=== PATIENT | male | born 1955 | race Caucasian/White ===

== ENCOUNTER 2018-03-16 12:31 | Emergency (ER) | payer OTHER ==
[~2018-03-16] VITALS: Ht 180.3 cm; Wt 79.4 kg
[~2018-03-16 12:31] MED LIST: FISH OIL 1,001000 M1; GNP THERAPEUTI1 EACH; LISINOPRIL40 MG; RESTORIL30 MG; SYNTHROID100 MCG; TAMSULOSIN HCL0.4 M1
[2018-03-16 12:47] VITALS: BP 149/79
[2018-03-16] MEDS ORDERED: ASPIR 8181 MG PO (12:52)
== END 2018-03-16 14:23 | disposition home or self-care (01) ==
LOC: ER 12:31
DX: S61.412A Laceration without foreign body of left hand, initial encounter (principal); I10 Essential (primary) hypertension; E03.9 Hypothyroidism, unspecified; Z88.2 Allergy status to sulfonamides; W26.8XXA Contact with other sharp object(s), not elsewhere classified, initial encounter; Y92.89 Other specified places as the place of occurrence of the external cause; Y93.89 Activity, other specified; Y99.8 Other external cause status

== ENCOUNTER → 2020-06-07 | Outpatient (CLI) | payer OTHER ==
[~2020-06-07] MED LIST changes: +ASPIR 8181 MG PO
== END ==
LOC: CAT 09:10
PROVIDERS: ATTEND Internal Medicine Cardiovascular Disease
DX: Z13.6 Encounter for screening for cardiovascular disorders (principal); I25.10 Atherosclerotic heart disease of native coronary artery without angina pectoris; E78.00 Pure hypercholesterolemia, unspecified

== ENCOUNTER 2020-11-30 21:05 | Emergency (ER) | payer OTHER ==
[~2020-11-30] VITALS: Ht 180.3 cm; Wt 77.1 kg
[2020-11-30] MEDS ORDERED: DESYREL150 MG PO (21:17)
[2020-11-30 21:35] LABS: ABSOLUTE NEUTROPHILS 3.6 thou/uL (1.4-8.2); BASOPHILS 1.5 % (0.0-2.0); HEMATOCRIT 45.7 % (42.0-52.0); HEMOGLOBIN 15.7 gm/dL (14.0-18.0); LYMPHOCYTES 32.7 % (24.0-44.0); MCH 30.9 pg (26.0-34.0); MCHC 34.3 g/dL (28.0-37.0); MCV 90.2 fL (80.0-100.0); MONOCYTES 9.8 % (1.0-8.0); PLATELET COUNT 317 thou/uL (150-400); RBC 5.07 mil/uL (4.50-6.00); RDW 13.7 % (10.5-14.5); WBC 6.9 thou/uL (4.0-11.0)
[2020-11-30 21:40] LABS: ANION GAP 8 mmol/L (7-16); BUN 21 mg/dL (7-18); CALCIUM 9.4 mg/dL (8.5-10.1); CHLORIDE 102 mmol/L (98-107); CO2 26 mmol/L (21-32); CREATININE 1.3 mg/dL (0.7-1.3); GLUCOSE 160 mg/dL (74-106); POTASSIUM 3.9 mmol/L (3.5-5.1); SODIUM 136 mmol/L (136-145)
[2020-11-30 21:50] LABS: TROPONIN-I <0.06 ng/mL (<0.06)
[2020-11-30 22:36] VITALS: BP 143/86
--- NOTE | 2020-12-02 07:22 | EKG ---
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 : 1955 Requested By: Polo Leon Order Number: [id number] MD: Slikc Pierce Measurements Intervals [place] Rate: 98 P: -81 RI: 130 QRS: -28 QRSD: 91 T: 167 QT: 455 QTc: 582 Interpretive Statements Ectopic atrial rhythm Transient bigeminy Multiform ventricular premature complexes Borderline left axis deviation Abnormal T, consider ischemia, lateral leads Compared to ECG 05/21/2012 15:05:06 Ectopic atrial rhythm now present Ventricular premature complex(es) now present T-wave abnormality now present Possible ischemia now present Sinus bradycardia no longer present Left ventricular hypertrophy no longer present Electronically Signed On 12-02-2020 7:22:16 CDT by Slick Pierce [email or web address] <ELECTRONICALLY SIGNED> By: Slick Pierce MD, FAC 12/02/20721 13 13 Slick Pierce MD, FAC /EPI
--- NOTE | 2020-12-02 07:22 | EKG ---
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 : 1955 Requested By: Polo Leon Order Number: [id number] MD: Slick Pierce Measurements Intervals [place] Rate: 68 P: 53 NV: 157 QRS: -25 QRSD: 96 T: 86 QT: 425 QTc: 453 Interpretive Statements Sinus rhythm Borderline left axis deviation Nonspecific T abnormalities, lateral leads Compared to ECG 05/21/2012 15:05:06 T-wave abnormality now present Sinus bradycardia no longer present Left ventricular hypertrophy no longer present Electronically Signed On 12-02-2020 7:22:20 CDT by Slick Pierce [email or web address] <ELECTRONICALLY SIGNED> By: Slick Pierce MD, [facility] 12/02/20 0722 20 20 Slick Pierce MD, [facility] /EPI
== END 2020-11-30 22:38 | disposition home or self-care (01) ==
LOC: ER 21:05
PROVIDERS: Nurse Practitioner
DX: I10 Essential (primary) hypertension (principal); E03.9 Hypothyroidism, unspecified; Z87.891 Personal history of nicotine dependence; Z79.899 Other long term (current) drug therapy; Z88.2 Allergy status to sulfonamides

== ENCOUNTER → 2021-01-17 | Outpatient (CLI) | payer OTHER ==
[~2021-01-17] MED LIST changes: +DESYREL150 MG PO
== END ==
LOC: SJCVC 07:52
PROVIDERS: ATTEND Internal Medicine Cardiovascular Disease
DX: K21.9 Gastro-esophageal reflux disease without esophagitis (principal); I10 Essential (primary) hypertension; R00.1 Bradycardia, unspecified; I34.0 Nonrheumatic mitral (valve) insufficiency

== ENCOUNTER → 2021-04-28 | Outpatient (CLI) | payer OTHER | LOC: SJCVCIMAG 07:31 | PROVIDERS: ATTEND Internal Medicine Cardiovascular Disease | DX: R94.31 Abnormal electrocardiogram [ECG] [EKG] (principal); I08.8 Other rheumatic multiple valve diseases; R00.1 Bradycardia, unspecified; R93.1 Abnormal findings on diagnostic imaging of heart and coronary circulation; I10 Essential (primary) hypertension; E78.00 Pure hypercholesterolemia, unspecified; I65.23 Occlusion and stenosis of bilateral carotid arteries; Z88.2 Allergy status to sulfonamides; Z79.899 Other long term (current) drug therapy; Z79.82 Long term (current) use of aspirin; Z87.891 Personal history of nicotine dependence ==